=== PATIENT | female | born 1990 | race American Indian/Alaskan Native ===

== ENCOUNTER 2016-07-24 07:56 | Emergency (ER) | payer BC ==
[2016-07-24 08:09] VITALS: PULSE 67; RESP 18; TEMP 99.2; O2SAT 100
--- NOTE | 2016-07-24 08:22 | ED PDOC ---
Arrival/HPI - General Chief Complaint: ENT Problem Time Seen by Provider: 07/24/16 08:15 Historian: Patient - History of Present Illness Narrative History of Present Illness (Text): 07/24/16 08:20 26 year old female presents to the emergency department complaining of "lump" sensation on the right side neck for the past 3 days. pt notes that she has had a "dental infection", due to have root canal. no fevers, n/v/d, sore throat, or other complaints 07/24/16 08:23 Past Medical History - Provider Review Nursing Documentation Reviewed: Yes - Infectious Disease Hx of Infectious Diseases: None - Reproductive Menopause: No - Endocrine/Metabolic Hx Hyperthyroidism: (thyroid cyst) - Psychiatric Hx Substance Use: No Family/Social History - Physician Review Nursing Documentation Reviewed: Yes Family/Social History: Unknown Family HX Smoking Status: Unknown If Ever Smoked Hx Alcohol Use: Yes Frequency of alcohol use: Socially Hx Substance Use: No Allergies/Home Meds Allergies/Adverse Reactions: Allergies No Known Allergies Allergy (Verified 07/24/16 08:10) Review of Systems - Review of Systems Constitutional: Normal Eyes: Normal ENT: Other (dental caries) Respiratory: Normal Cardiovascular: Normal Gastrointestinal: Normal Genitourinary Female: Normal Musculoskeletal: Normal Skin: Normal Neurological: Normal Endocrine: Normal Hemo/Lymphatic: Adenopathy Psychiatric: Normal Physical Exam Vital Signs Temp Pulse Resp BP Pulse Ox 07/24/16 08:05 99.2 F 67 18 116/82 100 Temperature: Afebrile Blood Pressure: Normal Pulse: Regular Respiratory Rate: Normal Appearance: Positive for: Well-Appearing, Non-Toxic, Comfortable Pain Distress: None Mental Status: Positive for: Alert and Oriented X 3 - Systems Exam Head: Present: Atraumatic, Normocephalic Pupils: Present: PERRL Extroacular Muscles: Present: EOMI Conjunctiva: Present: Normal Mouth: Present: Moist Mucous Membranes Pharnyx: No: ERYTHEMA, EXUDATE Neck: Present: Normal Range of Motion, Lymphadenopathy ((+)right). No: MIDLINE TENDERNESS, Paraspinal Tenderness, Bruit Respiratory/Chest: Present: Clear to Auscultation, Good Air Exchange. No: Respiratory Distress, Accessory Muscle Use Cardiovascular: Present: Regular Rate and Rhythm, Normal S1, S2. No: Murmurs Abdomen: Present: Normal Bowel Sounds. No: Tenderness, Distention, Peritoneal Signs Back: Present: Normal Inspection Upper Extremity: Present: Normal Inspection. No: Cyanosis, Edema Lower Extremity: Present: Normal Inspection. No: Edema Neurological: Present: GCS=15, CN II-XII Intact, Speech Normal Skin: Present: Warm, Dry, Normal Color. No: Rashes Psychiatric: Present: Alert, Oriented x 3, Normal Insight, Normal Concentration Medical Decision Making ED Course and Treatment: 07/24/16 08:25 suspected tender lyphadenopahty 2/2 infection. pt offered labs and ct imaging of neck. pt intially consented, now refuses, prefers to see pmd as outpt. neck supple, pt well appearing, no palpable abscess. speaking full sentences. pt agrees to return with worsening symptosm or concerns. - Medication Orders Current Medication Orders: Discontinued Medications Iohexol (Omnipaque 350 100 Ml) Confirm Administered Dose 350 mg .ROUTE .STK-MED ONE Stop: 07/24/16 08:25 Disposition/Present on Arrival - Present on Arrival Any Indicators Present on Arrival: No History of DVT/PE: No History of Uncontrolled Diabetes: No Urinary Catheter: No History of Decub. Ulcer: No History Surgical Site Infection Following: None - Disposition Have Diagnosis and Disposition been Completed?: Yes Diagnosis: Lymphadenopathy, Dental caries Disposition: HOME/ ROUTINE Disposition Time: 08:26 Condition: STABLE Discharge Instructions (ExitCare): Dental Caries (ED), Lymphadenopathy (ED) Additional Instructions: please follow up with your doctor. you may need futher diagnostic testing. you are refusing a CT and labs today, however you are able to return to er with worsening symptoms or concerns. Prescriptions: Amoxicillin 500 mg PO TID #21 tablet Referrals: [facility] [Outside] - Follow up with primary [facility] [Outside] - Follow up with primary
[2016-07-24] MEDS ORDERED: Iohexol 350 MG/100 ML VIAL ONE (08:24)
[2016-07-24 08:53] VITALS: BP 116/82
== END 2016-07-24 08:57 | disposition home or self-care (01) ==
LOC: ED 07:56
DX: R59.1 Generalized enlarged lymph nodes (principal); K02.9 Dental caries, unspecified